=== PATIENT | male | born 1960 | race Caucasian/White ===

== ENCOUNTER 2018-04-05 10:34 | Day surgery (SDC) | payer MEDICARE ==
[~2018-04-05 10:34] MED LIST: ACETAMINOPHEN 1,000 MG/100 ML BTL IV ONE; CEFAZOLIN 2 Gram 2 GM/50 ML BAG IVPB ONE
[2018-04-05] MEDS ORDERED: BUPIVACAINE 0.5% W/EPI MPF 30 ML VIAL IVP ONE (10:35)
[2018-04-05] MEDS ORDERED: PROPOFOL 10 MG/ML VIAL IV ONE (10:35)
[2018-04-05] MEDS ORDERED: LIDOCAINE 2% MDV (20MG/ML) 20ML VIAL IV ONE (10:35)
[2018-04-05] MEDS ORDERED: ONDANSETRON HCL IV 4 MG/2 ML VIAL IVP ONE (10:35)
[2018-04-05] MEDS ORDERED: SEVOFLURANE 250 ML INH ONE (10:35)
[2018-04-05] MEDS ORDERED: FENTANYL PF 100MCG/2ML VIAL IV ONE (10:35)
[2018-04-05] MEDS ORDERED: MORPHINE SULFATE 4 MG/ML VIAL ONE (14:55)
--- NOTE | 2018-04-06 10:41 | Operative Note ---
DATE OF SURGERY: 04/05/2018 PREOPERATIVE DIAGNOSIS: Internal derangement of right knee. POSTOPERATIVE DIAGNOSES: 1. 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 2. Absent posterior horn of the medial meniscus. 3. 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 4. Large loose body. OPERATION: 1. Right knee arthroscopy with removal of loose body. 2. Right knee arthroscopy with chondroplasty of the medial and patellofemoral compartments. Staff Surgeon: Miguel Jett MD Anesthesia: General. Preparation: Chloraprep. Individual Considerations: None. PROCEDURE: The patient was taken to the operating room and placed supine on the operating room table. The patient had a successful induction with general anesthetic. His right lower extremity was prepped and draped in the usual fashion. The patient had a superolateral inflow cannula placed. Skin was infiltrated with 0.5% Marcaine with epinephrine prior. The knee was then inflated with normal saline. An inferomedial and an inferolateral portal were made in a similar fashion. The arthroscope was introduced through the inferolateral portal up into the pouch. Patellofemoral compartment showed grade 3-4 changes throughout with marginal cartilage, especially in the notch which was loose. This smoothed off with a shaver. Floating debris in both gutters. In the medial compartment, there was a large cartilaginous loose body measuring about 1.5 x 1 cm. This was removed. The medial compartment had small grade 3 change in the medial femoral condyle posterolaterally which was smoothed with a shaver. It appeared that the posterior horn of the medial meniscus had been resected previously. Anterior and medial horns were intact. The notch, the cruciates were normal. Lateral compartment structures were normal. The knee was then irrigated out with saline to remove loose floating debris. Portals were closed with dewayne, and 20 mL of 0.25% plain Marcaine along with 4 mg of morphine and 80 mg of Depo-Medrol were injected into the knee. A sterile bulky compressive dressing was applied. The patient tolerated procedure well. Needle and sponge counts were correct. Estimated blood loss was minimal. He was taken back to recovery in good condition. There were no complications. [facility]ITAL[facility]ail[facility]
== END 2018-04-05 16:10 | disposition home or self-care (01) ==
LOC: SUR 10:34
PROVIDERS: ATTEND Orthopaedic Surgery
DX: M23.41 Loose body in knee, right knee (principal); M22.41 Chondromalacia patellae, right knee; M94.261 Chondromalacia, right knee
CPT/HCPCS: 29874; 01400; J2405; J3010; J0690; J2270

== ENCOUNTER 2018-05-17 11:56 | Day surgery (SDC) | payer MEDICARE ==
[~2018-05-17 11:56] MED LIST changes: +MORPHINE SULFATE 4 MG/ML VIAL ONE
[2018-05-17] MEDS ORDERED: FENTANYL PF 100MCG/2ML VIAL IV ONE (11:57)
[2018-05-17] MEDS ORDERED: PROPOFOL 10 MG/ML VIAL IV ONE (11:57)
[2018-05-17] MEDS ORDERED: DEXAMETHASONE 4 MG/ML 1ML VIAL IVP ONE (11:57)
[2018-05-17] MEDS ORDERED: METHYLPREDNISOLONE 40MG/VIAL IM ONE (11:57)
[2018-05-17] MEDS ORDERED: BUPIVACAINE 0.5% W/EPI MPF 30 ML VIAL IVP ONE (11:57)
[2018-05-17] MEDS ORDERED: LIDOCAINE 2% MDV (20MG/ML) 20ML VIAL IV ONE (11:57)
[2018-05-17] MEDS ORDERED: SEVOFLURANE 250 ML INH ONE (11:57)
[2018-05-17] MEDS ORDERED: MIDAZOLAM HCL 2MG/2ML VIAL IV ONE (11:57)
--- NOTE | 2018-05-18 09:10 | Operative Note ---
DATE OF SURGERY: 05/17/2018 Surgeon: Miguel Jett MD PREOPERATIVE DIAGNOSIS: Internal derangement left knee. POSTOPERATIVE DIAGNOSES: 1. Grade 3 chondromalacia of the patella. 2. Grade 3 chondromalacia of the medial femoral condyle. 3. Cartilaginous loose bodies. OPERATION: 1. Left knee arthroscopy with intraarticular debridement with chondroplasty of the medial femoral condyle and patella. 2. Arthroscopy with removal of multiple cartilaginous loose bodies. Anesthesia: General. PREPARATION: Chloraprep. INDIVIDUAL CONSIDERATIONS: None. PROCEDURE: The patient was taken to the operating room and placed supine on the operating room table. He had a successful induction with general anesthetic. His left lower extremity was prepped and draped in the usual fashion. The patient had a superior lateral inflow cannula placed. The skin was infiltrated with 0.5% Marcaine with epinephrine prior. The knee was then inflated with normal saline. An inferior medial and an inferior lateral portal were made in a similar fashion. The arthroscope was introduced through the inferior lateral portal up into the pouch. The patellofemoral joint showed grade 3 changes of the patella. This was smoothed with a shaver. The notch looked good. There was cartilaginous loose bodies in both gutters, which were irrigated out. In the medial compartment, there were grade 3 changes of the medial femoral condyle, which was smooth. The medial tibia plateau and medial meniscus were intact, in the notch the cruciates were normal and the lateral compartment structures were normal. The knee was then irrigated out with saline to remove loose floating debris. The portals were closed with dewayne. 20 mL of 0.25% plain Marcaine along with 40 mg of Depo-Medrol and 4 mg of morphine were injected into the knee and a sterile bulky compressive dressing was applied. The patient tolerated the procedure well. The needle and sponge counts were correct. Estimated blood loss was minimal. He was taken back to recovery in good condition. There were no complications. [facility]
== END 2018-05-17 14:50 | disposition home or self-care (01) ==
LOC: SUR 11:56
PROVIDERS: ATTEND Orthopaedic Surgery
DX: M23.42 Loose body in knee, left knee (principal); M94.262 Chondromalacia, left knee
CPT/HCPCS: 29874; 01400; J3010; J0690; J2270; J1030